=== PATIENT | female | born 1985 | race Caucasian/White ===

== ENCOUNTER → 2016-10-24 | Outpatient (CLI) | payer OTHER ==
--- NOTE | 2016-10-24 11:42 | DI ---
History: Right breast pain Comparison: None Findings: Ultrasound examination of the entire right breast was performed. Parenchymal tissue is unremarkable in appearance. No echogenic or anechoic lesions were demonstrated. Specifically, there are no findings to explain the patient's right breast pain. Impression Unremarkable ultrasound examination right breast
== END ==
LOC: US 10:52
PROVIDERS: ATTEND Physician Assistant
DX: N64.4 Mastodynia (principal)
CPT/HCPCS: 76641